=== PATIENT | female | born 1940 | race Caucasian/White ===

== ENCOUNTER 2018-11-08 19:32 | Emergency (ER) | payer MEDICARE, OTHER ==
[2018-11-08 20:58] LABS: #Basophils 0.1 thou/uL (0.0-0.2); #Lymphocytes 0.7 thou/uL (1.20-3.40); #Monocytes 0.5 thou/uL (0.11-0.59); #Neutrophils 11.5 thou/uL (1.40-6.50); %Basophils 0.7 % (0.0-1.0); %Eosinophils 0.4 % (0.0-10.0); %Lymphocytes 5.4 % (21.0-51.0); %Monocytes 4.2 % (0.0-10.0); %Neutrophils 89.3 % (42.0-75.0); Hemoglobin 14.2 g/dL (12.0-16.0); Mean Corpuscular HGB CONC 32.5 g/dL (32.0-36.0); Mean Corpuscular Hemoglobin 31.6 pg (27.0-31.0); Mean Corpuscular Volume 97.4 fL (78.0-98.0); Mean Platelet Volume 6.8 fL (7.4-10.4); Platelet Count 219 thou/uL (130-400); RBC Distribution Width 11.8 % (11.5-14.5); White Blood Cell (WBC) Count 12.9 thou/uL (4.8-10.8)
[2018-11-08 21:12] LABS: ALT (SGPT) 17 U/L (8-55); AST (SGOT) 15 U/L (5-34); Albumin 4.4 g/dL (3.4-4.8); Alkaline Phosphatase 68 U/L (40-150); Anion Gap 15 mmol/L (10-20); BUN (Urea Nitrogen) 17 mg/dL (9.8-20.1); Bilirubin, Total 0.4 mg/dL (0.2-1.2); Calc. Creatinine Clearance 0 mL/min (70-130); Calcium 9.4 mg/dL (7.8-10.44); Carbon Dioxide 22 mmol/L (23-31); Chloride 102 mmol/L (98-107); Estimated GFR-MDRD 57; Globulin 3.6 g/dL (2.4-3.5); Glucose 136 mg/dL (83-110); Potassium 4.3 mmol/L (3.5-5.1); Sodium 135 mmol/L (136-145)
--- NOTE | 2018-11-08 22:10 | CT ---
CT CHEST WITHOUT CONTRAST: 11/08/18 HISTORY: Cough. COMPARISON: Chest radiograph same day. FINDINGS: There is small mucus within the trachea. The lungs are clear. No pneumothorax. No effusion. No focal air space consolidation. No mediastinal adenopathy. Small reactive mediastinal lymph nodes. Moderate calcifications of the abd ominal aorta. The sternum and manubrium are intact. No thoracic spine compression fracture. There is scarring in both lung apices. No acute displaced rib fracture. IMPRESSION: 1. No acute intrathoracic abnormality. 2. Small volume mucus within the trachea. POS: [facility]
[2018-11-08] MEDS ORDERED: Azithromycin 250 MG TAB ONE (22:11)
[2018-11-08] MEDS ORDERED: predniSONE 20 MG TAB ONE (22:11)
--- NOTE | 2018-11-09 00:08 | RAD ---
CHEST TWO VIEW 11/08/18 HISTORY: Cough. COMPARISON: None. FINDINGS: The lungs are hyperinflated. No pneumothorax. No effusion. No focal air space consolidation. No acute osseous abnormality. There is fibrosis both lung apices. IMPRESSION: No acute intrathoracic abnormality. POS: [facility]
== END 2018-11-08 22:23 | disposition home or self-care (01) ==
LOC: MADERS 19:32
DX: J20.9 Acute bronchitis, unspecified (principal); I10 Essential (primary) hypertension; Z79.899 Other long term (current) drug therapy
CPT/HCPCS: 71046; 71250; 80053; 83880; 84484; 85025; 87081; 87430; 87804; 93005; J7620